=== PATIENT | male | born 1995 | race Caucasian/White ===

== ENCOUNTER 2016-10-17 21:49 | Emergency (ER) | payer OTHER ==
[2016-10-17 21:57] VITALS: BP 129/77
[2016-10-17] MEDS ORDERED: TOBRAM/DEXAMETH OPHTH DROPS 2.5 ML RIGHTEYE STA (22:36)
--- NOTE | 2016-10-17 22:38 | ED Physician Documentation ---
History of Present Illness - Stated complaint Stated Complaint: RT EYE PX/REDNESS - Chief complaint Chief Complaint: General - History obtained from History obtained from: Patient - History of Present Illness Timing: Today (He's had pretty bad allergies the season, tonight he rubbed his eye and noticed swelling of the white of the eye on the right without visual deficit, it is just inflamed.) Review of Systems Constitutional: denies: Fever, Chills Eyes: reports: Discharge, Irritation. denies: Loss of vision, Decreased vision , Photophobia Ears: denies: Loss of hearing, Ear pain Nose: reports: Rhinorrhea / runny nose, Congestion PD PAST MEDICAL HISTORY - Present Medications Home Medications: Ambulatory Orders Medication Instructions Recorded Confirmed Cetirizine [ZyrTEC] 10 mg PO DAILY 10/17/16 10/17/16 Mometasone Furoate [Nasonex] 1 spray NS BID #1 spray.pump 10/17/16 - Allergies Allergies/Adverse Reactions: Allergies Allergy/AdvReac Type Severity Reaction Status Date / Time cephalexin monohydrate * AdvReac Anaphylaxis Verified 10/17/16 21:56 [From Keflex] Cephalosporins AdvReac Hives Verified 10/17/16 21:57 PD ED PE NORMAL - Vitals Vital signs reviewed: Yes - General General: Alert and oriented X 3, No acute distress - HEENT HEENT: PERRL, EOMI, Other (He has a lot of cheimosis and allergic conjunctivitis on the right without fluorescein uptake.) - Neck Neck: Supple, no meningeal sign, No bony TTP - Derm Derm: No rash - Neuro Neuro: Alert and oriented X 3, Normal speech - Psych Psych: Normal mood, Normal affect Results - Vitals Vitals: Vital Signs - 24 hr 10/17/16 21:52 Temperature 36.9 C Heart Rate 62 Respiratory 16 Rate Blood Pressure 129/77 O2 Saturation 100 Oxygen O2 Source Room air Departure - Departure Disposition: 01 Home, Self Care Clinical Impression: Allergic conjunctivitis Qualifiers: Laterality: right Qualified Code(s): H10.11 - Acute atopic conjunctivitis, right eye Condition: Good Record reviewed to determine appropriate education?: Yes Instructions: Allergies Nasal, ED Allergic Conjunctivitis Prescriptions: Mometasone Furoate [Nasonex] 1 spray NS BID #1 spray.pump Comments: Use the eyedrops, one drop in the affected eye 4 times a day for 2 days, then twice a day for 2 days, then stop. Call your doctor to arrange a follow up appointment. Make the next available appointment. In the interim return anytime if worse or if new symptoms develop.
[2016-10-17] MEDS ORDERED: TOBRAM/DEXAMETH OPHTH DROPS 2.5 ML ONE (22:39)
== END 2016-10-17 22:47 | disposition home or self-care (01) ==
LOC: ED 21:49
DX: H10.11 Acute atopic conjunctivitis, right eye (principal)
CPT/HCPCS: 99283; A9270